=== PATIENT | male | born 1970 | race Caucasian/White ===

== ENCOUNTER → 2016-08-14 | Outpatient (CLI) | payer OTHER ==
[~2016-08-14] MED LIST: CIPRO 500MG TA500 MG PO; FLEXERIL10 MG PO; IMODIUM 2MG. CAP2 MG PO; LOMOTIL 2.5MG.2.5 MG PO; LORTAB 5/500 501 TAB PO; METFORMIN500 MG PO; NAPROSYN500 M1 PO; NAPROXEN SODIU500 MG PO; NOMEDS XX; NORCO 325 MG-51 TAB PO; PERCOCET 5/3251 EACH PO; ROBAXIN-750750 MG PO; VALIUM 5MG TABLE5 MG PO; VICODIN 5/500 T1 TAB PO; VOLTAREN75 MG PO
[2016-08-14 15:34] LABS: STOOL OCCULT BLOOD NEGATIVE (NEG)
== END ==
LOC: LAB 15:14
PROVIDERS: Nurse Practitioner Acute Care
DX: K43.9 Ventral hernia without obstruction or gangrene (principal)